=== PATIENT | male | born 1980 | race Caucasian/White ===

== ENCOUNTER 2020-12-23 18:04 | Emergency (ER) | payer OTHER ==
[~2020-12-23] VITALS: Ht 172.7 cm; Wt 95.3 kg
== END 2020-12-23 21:30 | disposition home or self-care (01) ==
LOC: ER1 18:04
DX: U07.1 COVID-19 (principal); Z23 Encounter for immunization; I10 Essential (primary) hypertension
CPT/HCPCS: 99283; M0243